=== PATIENT | male | born 1965 | race Caucasian/White ===

== ENCOUNTER → 2025-01-27 11:22 | Outpatient (REF) | payer BC, SELFPAY | LOC: HWRAD 11:22 | PROVIDERS: ATTENDING PHYSICIAN Family Medicine | DX: J01.90 Acute sinusitis, unspecified (principal); R09.81 Nasal congestion; R05.9 Cough, unspecified; R07.89 Other chest pain; E29.1 Testicular hypofunction; I10 Essential (primary) hypertension | CPT/HCPCS: 71046 ==

== ENCOUNTER → 2025-02-12 09:11 | Outpatient (REF) | payer BC, SELFPAY | LOC: HWRCS 09:11 | PROVIDERS: ATTENDING PHYSICIAN Internal Medicine Cardiovascular Disease; FAMILY PHYSICIAN Family Medicine | DX: R03.0 Elevated blood-pressure reading, without diagnosis of hypertension (principal); R94.31 Abnormal electrocardiogram [ECG] [EKG]; E78.00 Pure hypercholesterolemia, unspecified | CPT/HCPCS: 93306 ==

== ENCOUNTER → 2025-02-25 10:26 | Outpatient (REF) | payer BC, SELFPAY | LOC: RCS 10:26 | PROVIDERS: ATTENDING PHYSICIAN Internal Medicine Cardiovascular Disease; FAMILY PHYSICIAN Family Medicine | DX: R03.0 Elevated blood-pressure reading, without diagnosis of hypertension (principal); R94.31 Abnormal electrocardiogram [ECG] [EKG]; E78.00 Pure hypercholesterolemia, unspecified | CPT/HCPCS: 93017 ==

== ENCOUNTER 2025-09-21 01:44 | Emergency (ER) | payer BC, SELFPAY ==
[2025-09-21 01:48] VITALS: BP 157/72
[2025-09-21 01:55] VITALS: BMI 32.8
[2025-09-21 02:00] VITALS: BP 151/74
--- NOTE | 2025-09-21 02:35 | ED.GENMED ---
History of Present Illness
General
Chief Complaint: Overdose Unintentional
Source: patient
Exam Limitations: none
Time Seen by Provider: 09/21/25 02:33
Nursing documentation reviewed up to this point in time: agreed with
History of Present Illness
History of Present Illness:
Note:
CHIEF COMPLAINT(S)
Feeling anxious and 'out of it' after consuming a gummy potentially containing THC.
HISTORY OF PRESENT ILLNESS
The patient is a 60-year-old male with a history of hypertension, who presented with anxiety and feeling 'out of it' after consuming a gummy around 11 pm today. The patient has no previous experience with THC or similar substances and does not
routinely partake in smoking or alcohol use. He did have 2 cocktails this evening however. After consuming the gummy, he reported feeling unwell and sat on the edge of the bed; his spouse noted he appeared restless. There was no associated
dizziness, vomiting, or abdominal pain. The initial symptoms appear to have improved as he is more responsive and less anxious upon examination. reports that he has been improving since initial dose.
The patient was observed at home feeling restless, with an increased heart rate, which was monitored in the ER where it remained stable. The patient did not report any headache, chest pain, or dizziness. No other substances were taken alongside the
gummy.
ADDITIONAL HISTORY OBTAINED FROM SOURCES OTHER THAN THE PATIENT
Per the patients spouse, the patient appeared restless and was sitting on the edge of the bed stating he did not feel good. The spouse also indicated that there has been no previous consumption of THC products or other similar substances, and that
the patient appeared better after waking from sleep prior to ER presentation.
SOCIAL HISTORY
The patient has no history of smoking, alcohol use, or other forms of substance use.
PHYSICAL EXAM
General: Alert, sleepy, but able to follow commands.
Skin: Warm, dry.
Head: Normocephalic, atraumatic.
Neck: Supple, trachea midline.
Eye, Ears, Nose, Mouth and Throat: Oral mucosa moist.
Respiratory: Respirations are non-labored. Lungs clear bilaterally.
Gastrointestinal: Abdomen nondistended, no tenderness to palpation.
Back: Normal range of motion, Normal alignment.
Musculoskeletal: Normal range of motion, normal strength.
Neurological: CN II-XII intact. Nonfocal. Alert and oriented to person, place, time, and situation. No focal neurological deficit observed.
Psychiatric: Anxious earlier, but appears calmer after awakening.
PLAN
- Continue to monitor the patient�s heart rate and overall condition in the ER.
- Observe for any further effects from the THC ingestion.
- Allow the patient to rest and reassess symptoms upon waking.
- Discuss the potential for discharge if the patient continues to improve.
ED attending aware of case and EMS report and advised holding off on labs and imaging at this time
DIFFERENTIAL DIAGNOSIS
The Differential Diagnosis includes, in no particular order and is not limited to:
1. THC intoxication
2. Panic attack
3. Anxiety disorder
4. Benign positional vertigo
5. Hypoglycemia
6. Acute stress response
7. Acute coronary syndrome (unlikely currently, but monitor)
8. Transient ischemic attack
9. Dehydration
10. Hyperventilation syndrome
CHART REVIEW
No prior ER physician records or discharge summaries to review
LABS
Not indicated.
ECG
Not indicated.
MDM/DISPOSITION
The patient is a 60-year-old male with a history of hypertension, who presented with anxiety and feeling 'out of it' after consuming a gummy around 11 pm today. He used it to try to treat back pain he has having.
He is currently back pain free.
Denies chest pain, shortness of breath, abdominal pain.
He is well appearing no acute distress.
Telemetry monitoring unremarkable.
Upon observation and reassessment he feels improved and he is more arousable over time.
He is to be transported home by care of spouse.
Discussed THC cessation, strict return precautions.
Stable for discharge.
Phy Exam
Physical Exam
Physical Exam:
see hpi
Course
Vital Signs
Initial and Last Documented VS:
Initial Vital Signs
Resp
24
09/21/25 01:47
Last Documented Vital Signs
Temp Pulse Resp BP Pulse Ox
97.7 F 82 17 152/77 94
09/21/25 01:48 09/21/25 05:30 09/21/25 05:30 09/21/25 05:00 09/21/25 05:30
*Pulse Oximetry
SaO2: 89
Oxygen Mode of Delivery: Room air
Patient hypoxic: no
*Critical Care Note
Total Time (30-74mins, 75-104mins- exclusive of procedures): Not Applicable
ED Attending Note
-
Portions of this chart may have been created with voice recognition software.� Occasional wrong word or��sound alike� substitutions may have occurred due to the inherent limitations of voice recognition software.
Discharge Plan
Departure
Patient Disposition: Home (Routine Discharge)
Date of Disposition: 09/21/25
Time of Disposition: 05:50
Patient with high blood pressure during this ER visit?: Yes
Condition: Good
Discharge Problem:
Accidental marijuana overdose
Instructions: Accidental Overdose (DC), BLOOD PRESSURE
Prescriptions:
No Action
amlodipine 5 mg Tablet
5 mg PO DAILY
Referrals:
Mairlu Art PA-C [Family Provider, Family Practice]
Activity Restrictions/Additional Instructions:
Please follow-up with your primary care provider. Please refrain from THC Gummies.
PLEASE RETURN TO THE EMERGENCY DEPARTMENT CHEST PAIN, SHORTNESS OF BREATH, DIZZINESS, VISUAL CHANGES, FAINTING SPELLS, OR ANY OTHER SIGNS OR SYMPTOMS WORRISOME TO YOU.
Interventions
Interventions:
*Risk Screen - Suicide Last Done: 09/21/25 01:55
*General Assessment Last Done: 09/21/25 01:55
*Neglect/Abuse Screening Last Done: 09/21/25 01:55
*ED- Fall Risk Assessment Last Done: 09/21/25 01:55
*ED COVID-19 Vaccine History Last Done: 09/21/25 01:56
*ED Influenza Vaccine History Last Done: 09/21/25 01:56
*Nursing Disposition Last Done: 09/21/25 05:52
ED- Cardiac Assessment Last Done: 09/21/25 02:03
ED- Neurological Assessment Last Done: 09/21/25 02:03
ED-Psychological Assessment Last Done: 09/21/25 02:03
ED- Pulmonary Assessment Last Done: 09/21/25 02:03
Discharge Date and Time
Discharge Date/Time: 09/21/25 06:15
Print Language: POLISH
[2025-09-21 03:00] VITALS: BP 139/76
[2025-09-21 04:00] VITALS: BP 138/71
[2025-09-21 05:00] VITALS: BP 152/77
== END 2025-09-21 06:15 | disposition home or self-care (01) ==
LOC: EMR 01:44
PROVIDERS: EMERGENCY PHYSICIAN Emergency Medicine; FAMILY PHYSICIAN Physician Assistant Medical
DX: T40.711A Poisoning by cannabis, accidental (unintentional), initial encounter (principal); I10 Essential (primary) hypertension
CPT/HCPCS: 99283